=== PATIENT | female | born 1950 | race Hispanic/Latino ===

== ENCOUNTER 2017-01-25 01:41 | Emergency (ER) | payer MEDICARE ==
[2017-01-25 04:36] LABS: Hematocrit 35.1 % (30.3-42.9); Hemoglobin 11.7 gm/dl (10.1-14.3); Mean Corpuscular HGB Conc 33 % (30-34); Mean Corpuscular Hemoglobin 26 pg (28-32); Mean Corpuscular Volume 79 fl (79-97); Platelet Count 247 K/mm3 (140-440); Red Blood Count 4.43 M/mm3 (3.65-5.03); Red Cell Distribution Width 16.6 % (13.2-15.2); White Blood Count 7.1 K/mm3 (4.5-11.0)
[2017-01-25 04:52] LABS: Amylase 50 units/L (27-131); Lipase 37 units/L (13-60)
[2017-01-25 04:54] LABS: Alanine Aminotransferase 7 units/L (7-56); Albumin 3.2 g/dL (3.9-5); Albumin/Globulin Ratio 1.2 %; Alkaline Phosphatase 56 units/L (35-129); Anion Gap 15 mmol/L; BUN/Creatinine Ratio 20; Blood Urea Nitrogen 12 mg/dL (7-17); Calcium 9.1 mg/dL (8.4-10.2); Carbon Dioxide 30 mmol/L (22-30); Chloride 103.2 mmol/L (98-107); Glucose 87 mg/dL (65-100); Potassium 4.1 mmol/L (3.6-5.0); Sodium 144 mmol/L (137-145); Total Protein 5.9 g/dL (6.3-8.2)
[2017-01-25 05:18] LABS: Basophils % (Manual) 0 % (0.0-1.8); Blastocytes % (Manual) 0 %
[2017-01-25 05:19] LABS: Diff Status Complete; Platelet Estimate Consistent w Auto; RBC Morphology Normal
[2017-01-25] MEDS ORDERED: ZOFRAN ORAL LIQ PO ONE (06:40)
[2017-01-25] MEDS ORDERED: XYLOCAINE TOPICAL 2% TP ONE (06:40)
[2017-01-25] MEDS ORDERED: CARAFATE PO ONE (06:40)
[2017-01-25] MEDS ORDERED: XYLOCAINE TOPICAL 4% TP ONE (06:40)
--- NOTE | 2017-01-25 06:42 | Emergency Department Report ---
ED General Adult HPI - General Chief complaint: Nausea/Vomiting/Diarrhea Stated complaint: VOMITING Time Seen by Provider: 01/25/17 06:26 Source: patient, EMS (ems notes not available at time of chart dictation), RN notes reviewed Mode of arrival: Stretcher Limitations: Other (patient is elderly, demented, poor historian) - History of Present Illness Initial comments: This is a 66-year-old female who was previously unknown to this provider. She is brought to the hospital [facility] a local [facility] for nausea and vomiting, possible coffee-ground emesis. Patient does not have any recollection of this event. The patient complained of nausea and vomiting, and that was her only complaint. She indicates she is not having headache, neck pain, chest pain, abdominal pain or shortness of breath. The patient further indicates no irritative or obstructive urinary symptoms. She cannot recall she's had any hematemesis of bright red blood per rectum. The patient is unable to describe exacerbating or relieving factors. No further information is available at this time. As per triage nurse documentation, patient has a history of schizophrenia , stroke, general confusion at baseline. -: unknown Severity scale (0 -10): 0 Associated Symptoms: confusion, nausea/vomiting - Related Data Home Medications Medication Instructions Recorded Confirmed Last Taken Aspirin [Baby Aspirin] 81 mg PO QDAY 07/31/13 01/25/17 Unknown Citalopram Hydrobromide [Celexa] 20 mg PO DAILY 07/31/13 01/25/[address] [Depakote Dr] 250 mg PO BID 07/31/13 01/25/17 Unknown Donepezil [Aricept] 10 mg PO HS 07/31/13 01/25/17 Unknown LORazepam [Ativan] 1 mg PO Q4H PRN 07/31/13 01/25/17 Unknown Metoprolol [Lopressor] 25 mg PO BID 07/31/13 01/25/17 Unknown QUEtiapine [SEROquel] 400 mg PO HS 07/31/13 01/25/17 Unknown Sucralfate [Carafate] 1 gm PO BID 07/31/13 01/25/17 Unknown levETIRAcetam [Keppra] 500 mg PO BID 07/31/13 01/25/17 Unknown Acetaminophen [Tylenol Extra 500 mg PO Q8HR PRN 01/25/17 01/25/17 Unknown Strength] Amlodipine Besylate [Norvasc] 10 mg PO QDAY 01/25/17 01/25/17 Unknown LORazepam [Ativan INJ] 1 mg IM Q4HR PRN 01/25/17 01/25/17 Unknown Magnesium Hydroxide [Milk of 30 ml PO DAILY PRN 01/25/17 01/25/17 Unknown Magnesia] Memantine HCl [Namenda Xr] 28 mg PO QDAY 01/25/17 01/25/17 Unknown Memantine Xr 28 mg PO DAILY 01/25/17 01/25/17 Unknown QUEtiapine [SEROquel] 200 mg PO BID 01/25/17 01/25/17 Unknown Previous Rx's Medication Instructions Recorded Last Taken Type Fosfomycin Tromethamine [Monurol] 3 gm PO QDAY #1 packet 01/25/17 Unknown Rx Metoclopramide [Reglan] 10 mg PO QID PRN #30 tablet 01/25/17 Unknown Rx metroNIDAZOLE [Flagyl] 500 mg PO Q8HR #9 tablet 01/25/17 Unknown Rx Allergies Allergy/AdvReac Type Severity Reaction Status Date / Time Penicillins Allergy Hives Verified 07/31/13 12:56 Sulfa (Sulfonamide Allergy Hives Verified 07/31/13 12:56 Antibiotics) ED Review of Systems ROS: Stated complaint: VOMITING Other details as noted in HPI Comment: Unobtainable due to pts medical conditions Constitutional: denies: fever Eyes: denies: eye discharge Respiratory: denies: cough Cardiovascular: denies: chest pain Gastrointestinal: nausea, vomiting Genitourinary: as per HPI Musculoskeletal: as per HPI Skin: as per HPI Neurological: as per HPI Psychiatric: as per HPI ED Past Medical Hx - Past Medical History Previous Medical History?: Yes Hx Hypertension: Yes Hx CVA: Yes Hx Psychiatric Treatment: Yes Hx Dementia: Yes Additional medical history: Schizophrenia, 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 - Social History Smoking Status: Former Smoker Substance Use Type: None - Medications Home Medications: Home Medications Medication Instructions Recorded Confirmed Last Taken Type Aspirin [Baby Aspirin] 81 mg PO QDAY 07/31/13 01/25/17 Unknown History Citalopram Hydrobromide [Celexa] 20 mg PO DAILY 07/31/13 01/25/[address] [Depkenjite Dr] 250 mg PO BID 07/31/13 01/25/17 Unknown History Donepezil [Aricept] 10 mg PO HS 07/31/13 01/25/17 Unknown History LORazepam [Ativan] 1 mg PO Q4H PRN 07/31/13 01/25/17 Unknown History Metoprolol [Lopressor] 25 mg PO BID 07/31/13 01/25/17 Unknown History QUEtiapine [SEROquel] 400 mg PO HS 07/31/13 01/25/17 Unknown History Sucralfate [Carafate] 1 gm PO BID 07/31/13 01/25/17 Unknown History levETIRAcetam [Keppra] 500 mg PO BID 07/31/13 01/25/17 Unknown History Acetaminophen [Tylenol Extra 500 mg PO Q8HR PRN 01/25/17 01/25/17 Unknown History Strength] Amlodipine Besylate [Norvasc] 10 mg PO QDAY 01/25/17 01/25/17 Unknown History Fosfomycin Tromethamine [Monurol] 3 gm PO QDAY #1 packet 01/25/17 Unknown Rx LORazepam [Ativan INJ] 1 mg IM Q4HR PRN 01/25/17 01/25/17 Unknown History Magnesium Hydroxide [Milk of 30 ml PO DAILY PRN 01/25/17 01/25/17 Unknown History Magnesia] Memantine HCl [Namenda Xr] 28 mg PO QDAY 01/25/17 01/25/17 Unknown History Memantine Xr 28 mg PO DAILY 01/25/17 01/25/17 Unknown History Metoclopramide [Reglan] 10 mg PO QID PRN #30 tablet 01/25/17 Unknown Rx QUEtiapine [SEROquel] 200 mg PO BID 01/25/17 01/25/17 Unknown History metroNIDAZOLE [Flagyl] 500 mg PO Q8HR #9 tablet 01/25/17 Unknown Rx ED Physical Exam - General Limitations: Altered Mental Status, Other (demented, poor historian, baseline confusion) General appearance: alert, in no apparent distress - Head Head exam: Present: atraumatic, normocephalic - Eye Eye exam: Present: normal appearance, EOMI. Absent: nystagmus - ENT ENT exam: Present: normal exam, normal orophraynx, mucous membranes moist, normal external ear exam - Neck Neck exam: Present: normal inspection, full ROM. Absent: tenderness, meningismus - Respiratory Respiratory exam: Present: normal lung sounds bilaterally. Absent: respiratory distress, wheezes, rales, rhonchi, stridor, chest wall tenderness, accessory muscle use, decreased breath sounds - Cardiovascular Cardiovascular Exam: Present: regular rate, normal rhythm, systolic murmur ( there is a 2/6 systolic murmur, heard best at the second intercostal space). Absent: diastolic murmur, rubs, gallop - GI/Abdominal GI/Abdominal exam: Present: soft, normal bowel sounds. Absent: distended, tenderness, guarding, rebound, rigid, pulsatile mass - Rectal Rectal exam: Present: normal inspection, normal rectal tone, heme (-) stool - Extremities Exam Extremities exam: Present: normal inspection, full ROM, normal capillary refill. Absent: pedal edema, joint swelling, calf tenderness - Back Exam Back exam: Present: normal inspection, full ROM. Absent: CVA tenderness (L), muscle spasm, paraspinal tenderness, vertebral tenderness - Neurological Exam Neurological exam: Present: alert, other (Extraocular movements intact. Tongue midline. No facial droop. Facial sensation intact to light touch in the V1, V2 , V3 distribution bilaterally. 5 and 5 strength in 4 extremities.. Sensation is intact to light touch in 4 extremities.). Absent: motor sensory deficit - Psychiatric Psychiatric exam: Present: anxious - Skin Skin exam: Present: warm, dry, intact, normal color. Absent: rash ED Course Vital Signs 01/25/17 01/25/17 01/25/17 02:00 03:31 05:13 Temperature 98.0 F 98.2 F Pulse Rate 68 67 61 Respiratory 16 16 15 Rate Blood Pressure 103/55 106/58 Blood Pressure 95/56 [Left] O2 Sat by Pulse 95 94 93 Oximetry 01/25/17 01/25/17 01/25/17 05:16 05:30 05:46 Temperature Pulse Rate 61 61 60 Respiratory 14 15 14 Rate Blood Pressure 106/58 106/58 115/63 Blood Pressure [Left] O2 Sat by Pulse 92 92 93 Oximetry 01/25/17 01/25/17 01/25/17 06:00 06:16 06:30 Temperature Pulse Rate 69 61 65 Respiratory 13 14 22 Rate Blood Pressure 115/63 91/58 91/58 Blood Pressure [Left] O2 Sat by Pulse 92 93 92 Oximetry 01/25/17 01/25/17 01/25/17 06:46 07:00 07:16 Temperature Pulse Rate 61 60 64 Respiratory 11 L 15 20 Rate Blood Pressure 101/71 101/71 103/70 Blood Pressure [Left] O2 Sat by Pulse 96 94 94 Oximetry 01/25/17 01/25/17 01/25/17 07:30 08:46 09:00 Temperature Pulse Rate 61 Respiratory 14 Rate Blood Pressure 103/70 103/70 103/70 Blood Pressure [Left] O2 Sat by Pulse 94 94 95 Oximetry 01/25/17 01/25/17 01/25/17 09:16 10:00 11:00 Temperature Pulse Rate 63 67 70 Respiratory 16 17 14 Rate Blood Pressure 122/72 144/106 122/66 Blood Pressure [Left] O2 Sat by Pulse 96 81 L 93 Oximetry 01/25/17 12:00 Temperature Pulse Rate 73 Respiratory 15 Rate Blood Pressure 126/71 Blood Pressure [Left] O2 Sat by Pulse 93 Oximetry - Reevaluation(s) Reevaluation #1: 01/25/17 08:41 Differential diagnosis: Pneumonia, urinary tract infection, gastritis, upper GI bleed, colitis, diverticulitis Assessment and plan: 66-year-old elderly female, with a complaint of nausea and vomiting, she is afebrile, with reassuring vital signs, hemoglobin and hematocrit have remained stable in serial examinations, rectal temperature 98.2 degrees, there is brown stool on rectal examination, and she is guaiac negative. No episodes of hematemesis have been noted in the 4 hours at the patient has thus far been in the emergency department. The abdomen is soft and benign, with no rebound, guarding or peritoneal signs, and there is no left lower quadrant tenderness. CT scan reading is reviewed and appreciated, patient may have a very mild colitis or diverticulitis, she will therefore be discharged with prescription for alternative antibiotic, as it appears that the patient may have history of seizure, and a fluoroquinolone will decrease seizure threshold. Patient will be discharged with a short course of antibiotics, and she should follow up with an outpatient radio time buyer or primary care doctor. 10/07/17 10:54 Reevaluation #2: 01/25/17 09:31 Blood pressure in the 120s. Nasogastric lavage negative. Urinalysis pending. Resting comfortably. No additional episodes of nausea and vomiting at this time. Reevaluation #3: 01/25/17 10:54 Urinalysis does suggest urinary tract infection. Cultures are sent. Patient is allergic to penicillins and sulfa. Therefore, not a candidate for Augmentin , or Bactrim. Patient will be discharged with Flagyl prescription, in case there is a component of colitis/diverticulitis, this will be prescribed as monotherapy. Patient has no abdominal tenderness, and no episodes of diarrhea, so I do not favor this clinically. Urinalysis does suggest urinary tract infection, given the aforementioned allergies, and presumed history of seizure disorder, patient will be discharged with fosfomycin which is a single dose should be adequate to cover urinary tract infections. Doubt upper urinary tract infection given lack of fever, no active vomiting, no CVA tenderness, stable vital signs. ED Medical Decision Making - Lab Data Result diagrams: 01/25/17 07:17 01/25/17 03:39 Vital Signs 01/25/17 01/25/17 02:00 03:31 Temperature 98.0 F 98.2 F Pulse Rate 68 67 Respiratory 16 16 Rate Blood Pressure 103/55 Blood Pressure 95/56 [Left] O2 Sat by Pulse 95 94 Oximetry Lab Results 01/25/17 01/25/17 01/25/17 Range/Units 03:39 03:39 03:39 WBC 7.1 (4.5-11.0) K/mm3 RBC 4.43 (3.65-5.03) M/mm3 Hgb 11.7 (10.1-14.3) gm/dl Hct 35.1 (30.3-42.9) % MCV 79 (79-97) fl MCH 26 L (28-32) pg MCHC 33 (30-34) % RDW 16.6 H (13.2-15.2) % Plt Count 247 (140-440) K/mm3 Add Manual Diff Complete Total Counted 100 Seg Neutrophils % Telemetry Technician Seg Neuts % (Manual) 32.0 L (40.0-70.0) % Band Neutrophils % 3.0 % Lymphocytes % (Manual) 51.0 H (13.4-35.0) % Reactive Lymphs % (Man) 0 % Monocytes % (Manual) 9.0 H (0.0-7.3) % Eosinophils % (Manual) 5.0 H (0.0-4.3) % Basophils % (Manual) 0 (0.0-1.8) % Metamyelocytes % 0 % Myelocytes % 0 % Promyelocytes % 0 % Blast Cells % 0 % Nucleated RBC % Not Reportable Seg Neutrophils # Man 2.3 (1.8-7.7) K/mm3 Band Neutrophils # 0.2 K/mm3 Lymphocytes # (Manual) 3.6 (1.2-5.4) K/mm3 Abs React Lymphs (Man) 0.0 K/mm3 Monocytes # (Manual) 0.6 (0.0-0.8) K/mm3 Eosinophils # (Manual) 0.4 (0.0-0.4) K/mm3 Basophils # (Manual) 0.0 (0.0-0.1) K/mm3 Metamyelocytes # 0.0 K/mm3 Myelocytes # 0.0 K/mm3 Promyelocytes # 0.0 K/mm3 Blast Cells # 0.0 K/mm3 WBC Morphology Not Reportable Hypersegmented Neuts Not Reportable Hyposegmented Neuts Not Reportable Hypogranular Neuts Not Reportable Smudge Cells Not Reportable Toxic Granulation Not Reportable Toxic Vacuolation Not Reportable Dohle Bodies Not Reportable Pelger-Huet Anomaly Not Reportable Mukesh Rods Not Reportable Platelet Estimate Consistent w auto Clumped Platelets Not Reportable Plt Clumps, EDTA Not Reportable Large Platelets Not Reportable Giant Platelets Not Reportable Platelet Satelliting Not Reportable Plt Morphology Comment Not Reportable RBC Morphology Normal Dimorphic RBCs Not Reportable Polychromasia Not Reportable Hypochromasia Not Reportable Poikilocytosis Not Reportable Anisocytosis Not Reportable Microcytosis Not Reportable Macrocytosis Not Reportable Spherocytes Not Reportable Pappenheimer Bodies Not Reportable Sickle Cells Not Reportable Target Cells Not Reportable Tear Drop Cells Not Reportable Ovalocytes Not Reportable Helmet Cells Not Reportable Roberts-Orono Bodies Not Reportable Dowell Rings Not Reportable Tad Cells Not Reportable Bite Cells Not Reportable Crenated Cell Not Reportable Elliptocytes Not Reportable Acanthocytes (Spur) Not Reportable Rouleaux Not Reportable Hemoglobin C Crystals Not Reportable Schistocytes Not Reportable Malaria parasites Not Reportable Bandar Bodies Not Reportable Hem Pathologist Commnt No Sodium 144 (137-145) mmol/L Potassium 4.1 (3.6-5.0) mmol/L Chloride 103.2 (98-107) mmol/L Carbon Dioxide 30 (22-30) mmol/L Anion Gap 15 mmol/L BUN 12 (7-17) mg/dL Creatinine 0.6 L (0.7-1.2) mg/dL Estimated GFR > 60 ml/min BUN/Creatinine Ratio 20 % Glucose 87 (65-100) mg/dL Calcium 9.1 (8.4-10.2) mg/dL Total Bilirubin 0.20 (0.1-1.2) mg/dL AST 10 (5-40) units/L ALT 7 (7-56) units/L Alkaline Phosphatase 56 (35-129) units/L Total Protein 5.9 L (6.3-8.2) g/dL Albumin 3.2 L (3.9-5) g/dL Albumin/Globulin Ratio 1.2 % Amylase 50 (27-131) units/L Lipase 37 (13-60) units/L /07/17 Range/Units 07:17 WBC 6.8 (4.5-11.0) K/mm3 RBC 4.30 (3.65-5.03) M/mm3 Hgb 11.1 (10.1-14.3) gm/dl Hct 34.4 (30.3-42.9) % MCV 80 (79-97) fl MCH 26 L (28-32) pg MCHC 32 (30-34) % RDW 16.8 H (13.2-15.2) % Plt Count 229 (140-440) K/mm3 Add Manual Diff Total Counted Seg Neutrophils % Seg Neuts % (Manual) (40.0-70.0) % Band Neutrophils % % Lymphocytes % (Manual) (13.4-35.0) % Reactive Lymphs % (Man) % Monocytes % (Manual) (0.0-7.3) % Eosinophils % (Manual) (0.0-4.3) % Basophils % (Manual) (0.0-1.8) % Metamyelocytes % % Myelocytes % % Promyelocytes % % Blast Cells % % Nucleated RBC % Seg Neutrophils # Man (1.8-7.7) K/mm3 Band Neutrophils # K/mm3 Lymphocytes # (Manual) (1.2-5.4) K/mm3 Abs React Lymphs (Man) K/mm3 Monocytes # (Manual) (0.0-0.8) K/mm3 Eosinophils # (Manual) (0.0-0.4) K/mm3 Basophils # (Manual) (0.0-0.1) K/mm3 Metamyelocytes # K/mm3 Myelocytes # K/mm3 Promyelocytes # K/mm3 Blast Cells # K/mm3 WBC Morphology Hypersegmented Neuts Hyposegmented Neuts Hypogranular Neuts Smudge Cells Toxic Granulation Toxic Vacuolation Dohle Bodies Pelger-Huet Anomaly Mukesh Rods Platelet Estimate Clumped Platelets Plt Clumps, EDTA Large Platelets Giant Platelets Platelet Satelliting Plt Morphology Comment RBC Morphology Dimorphic RBCs Polychromasia Hypochromasia Poikilocytosis Anisocytosis Microcytosis Macrocytosis Spherocytes Pappenheimer Bodies Sickle Cells Target Cells Tear Drop Cells Ovalocytes Helmet Cells Roberts-Orono Bodies Dowell Rings Travis Cells Bite Cells Crenated Cell Elliptocytes Acanthocytes (Spur) Rouleaux Hemoglobin C Crystals Schistocytes Malaria parasites Bandar Bodies Hem Pathologist Commnt Sodium (137-145) mmol/L Potassium (3.6-5.0) mmol/L Chloride (98-107) mmol/L Carbon Dioxide (22-30) mmol/L Anion Gap mmol/L BUN (7-17) mg/dL Creatinine (0.7-1.2) mg/dL Estimated GFR ml/min BUN/Creatinine Ratio % Glucose (65-100) mg/dL Calcium (8.4-10.2) mg/dL Total Bilirubin (0.1-1.2) mg/dL AST (5-40) units/L ALT (7-56) units/L Alkaline Phosphatase (35-129) units/L Total Protein (6.3-8.2) g/dL Albumin (3.9-5) g/dL Albumin/Globulin Ratio % Amylase (27-131) units/L Lipase (13-60) units/L - Radiology Data Radiology results: report reviewed, image reviewed interpreted by me: X-ray the chest is negative for acute disease, status post sternotomy Noncontrast CT scan of the abdomen and pelvis demonstrates small pleural effusions, atelectasis, patulous distal esophagus, sigmoid diverticulosis, rectosigmoid wall thickening with areas of mild edema and stranding, no appendicitis, possible mild colitis/diverticulitis. Critical care attestation.: If time is entered above; I have spent that time in minutes in the direct care of this critically ill patient, excluding procedure time. ED Disposition Clinical Impression: History of nausea and vomiting Disposition: [id number] GEN HOSP IP Is pt being admited?: No Does the pt Need Aspirin: No Condition: Stable Instructions: Urinary Tract Infection in Women (ED) Additional Instructions: Cultures were sent today, results will be available in the next 3-5 days. Have a primary care doctor contact the medical records department to obtain culture results. Take the Flagyl antibiotic as directed for the next 3 days, do not consume alcohol. Take the fosfomycin antibiotic as a single dose with 8-12 ounces of water; this is typically uses treatment for simple urinary tract infections. Have the patient follow up with a primary care doctor or radio time buyer within the next 2-[address] scan suggested mild nonspecific distal colitis/diverticulitis. Not following up as recommended may result in undiagnosed tumor/cancer/malignancy. Take a nausea medication as directed, continue outpatient medications. Return to the ER right away with new pain, worsened pain, migration of pain, fevers, chills, lethargy, irritability, projectile vomiting, change in mental status, inability to tolerate liquid feeds. Dr. Slava Chapin is a local primary care doctor. Dr. Gaona is a local gastroenterology specialist. Prescriptions: Fosfomycin Tromethamine [Monurol] 3 gm PO QDAY #1 packet Metoclopramide [Reglan] 10 mg PO QID PRN #30 tablet PRN Reason: Nausea metroNIDAZOLE [Flagyl] 500 mg PO Q8HR #9 tablet Referrals: PRIMARY MD EMORY [Primary Care Provider] - 3-5 Days SLAVA CHAPIN MD [Staff Physician] - 3-5 Days WILI WELLS MD [Staff Physician] - 3-5 Days
[2017-01-25 07:53] LABS: Hematocrit 34.4 % (30.3-42.9); Hemoglobin 11.1 gm/dl (10.1-14.3); Mean Corpuscular HGB Conc 32 % (30-34); Mean Corpuscular Volume 80 fl (79-97); Platelet Count 229 K/mm3 (140-440); Red Cell Distribution Width 16.8 % (13.2-15.2); White Blood Count 6.8 K/mm3 (4.5-11.0)
[2017-01-25 07:54] LABS: Mean Corpuscular Hemoglobin 26 pg (28-32)
--- NOTE | 2017-01-25 08:10 | Cat Scan Report ---
FINAL REPORT EXAM: CT ABDOMEN PELVIS WO CON HISTORY: n/v ? hematemesis TECHNIQUE: CT images obtained through the Abdomen and Pelvis without contrast. Transaxial, reformats are provided. PRIORS: None. FINDINGS: Imaged intrathoracic contents are remarkable for small bilateral pleural effusions. Cardiomegaly. Overlying sternotomy wires. Bibasilar atelectasis/scarring. Small hiatal hernia. Suggested patulous distal esophagus. Kidneys are normal in size, axis and position. No hydronephrosis or nephrolithiasis. The ureters are normal in course and caliber. No stones are seen within the urinary bladder. Cholecystectomy. The liver, pancreas, spleen, and adrenal glands demonstrate an unremarkable noncontrast appearance. Extensive sigmoid diverticulosis. There is rectosigmoid wall thickening with scattered areas of mild edema and stranding. No acute appendicitis. No intra-abdominal free air/fluid or lymphadenopathy. Aorta is normal in course and caliber. Densely scattered atherosclerosis. Anteverted uterus. Superficial soft tissues are remarkable for rectus diastasis with fat containing ventral hernia measuring up to 4.1 cm at the neck on axial series 3, image 114. No acute or aggressive appearing skeletal findings. IMPRESSION: No pneumoperitoneum or abdominal ascites. There is wall thickening of the sigmoid colon and rectum with scattered areas of pericolonic stranding and edema, suggestive of mild colitis/diverticulitis. Fat containing ventral hernia measures up to 4.1 cm at the neck. Small hiatal hernia with suggested patulous distal esophagus.
--- NOTE | 2017-01-25 09:26 | XRay Report ---
AP CHEST: HISTORY: Nausea and vomiting, evaluate for pneumonia Previous CABG changes are noted. AP view of the chest demonstrates a normal mediastinal and cardiac contour with clear lungs and normal bony and soft tissue structures. IMPRESSION: No acute cardiopulmonary process.
[2017-01-25 10:22] LABS: Bacteria,Urine 3+ /HPF (Negative); Bilirubin,Urine NEG (Negative); Blood,Urine NEG (Negative); Ketones,Urine NEG (Negative); Leukocyte Esterase,Urine LG (Negative); Mucus,Urine 3+ /HPF; Nitrite,Urine POS (Negative); Urobilinogen,Urine < 2.0 mg/dL (<2.0)
[2017-01-25] MEDS ORDERED: FLAGYL PO ONE (10:57)
[2017-01-25 12:42] VITALS: BP 126/71
== END 2017-01-25 15:30 | disposition short-term general hospital (02) ==
LOC: ED 01:41
DX: R11.2 Nausea with vomiting, unspecified (principal); R41.0 Disorientation, unspecified; I10 Essential (primary) hypertension; I63.9 Cerebral infarction, unspecified; E78.5 Hyperlipidemia, unspecified; Z87.891 Personal history of nicotine dependence; Z98.890 Other specified postprocedural states; Z79.82 Long term (current) use of aspirin; Z88.0 Allergy status to penicillin; Z88.2 Allergy status to sulfonamides
CPT/HCPCS: 36415; 51701; 71010; 74176; 80053; 81001; 82150; 82271; 83690; 85007; 85025; 85027; 87076; 87086; 87186; 99285; Q0162